=== PATIENT | male | born 1940 | race Caucasian/White ===

== ENCOUNTER 2022-02-16 08:36 | Inpatient (IN) | payer OTHER, SELFPAY ==
[2022-02-16] VITALS (9 sets, daily range): BP systolic 94–145; BP diastolic 67–85; PULSE 75–91; RESP 15–23; TEMP 36.1–36.7; O2SAT 93–100; BMI 34.2; BMI 32.3
--- NOTE | 2022-02-16 08:39 | EKG12_ITS ---
Test Reason : Blood Pressure : / mmHG Vent. Rate : 086 BPM Atrial Rate : 086 BPM P-R Int : 132 ms QRS Dur : 088 ms QT Int : 386 ms P-R-T Axes : 016 022 058 degrees QTc Int : 461 ms Normal sinus rhythm Normal ECG Confirmed by BOBBY JASSO, ANGELIQUE ([id number]), art editor BINH SURESH ([id number]) on 02/18/2022 12:50:37 PM Referred By: Axel Confirmed By:ANGELIQUE ROSALES MD
--- NOTE | 2022-02-16 08:39 | CT_ITS ---
STUDY: CT HEAD STROKE PROTOCOL W/O CONTRAST INJECTION REASON FOR EXAM: Male, 81 years old. Neuro deficit, acute, stroke suspected RADIATION DOSAGE (If Supplied By Facility): CTDIvol = ( 44.99 ) mGy, DLP = ( a 12.98 ) mGycm TECHNIQUE: Transaxial CT imaging of the brain was performed without administration of intravenous contrast material. Individualized dose optimization techniques were used for this CT. COMPARISON: No relevant priors. FINDINGS: Normal soft tissue structures. Normal calvarium. There is mild cerebral atrophy with widening of the extra-axial spaces and ventricular dilatation. There is a 1.1 cm x 0.8 cm hyperdense nodule in the medial aspect of the left occipital lobe with surrounding edema. A similar appearing nodule is seen in the cortical surface of the left posterior parietal lobe measuring 1.5 size by 1.2 cm with surrounding edema. There is also evidence of a 5.6 cm hyperechoic nodule in the posterior medial aspect of the left occipital lobe as well as a 2.1 cm x 1.9 cm hyper dense nodule in the posterior left parietal lobe and medial portion of the right posterior occipital lobe measuring 1 cm. Findings are suggestive of metastatic disease. Normal basal ganglia and thalami. Normal brainstem. Normal cerebellum. There is no intracranial hemorrhage. There are no findings of an acute ischemic infarction. Normal visualized paranasal sinuses. ASPECT score: 10 CT/STROKE Brain/Head without Cont IMPRESSION: Multiple hyperdense nodules scattered in both cerebral hemispheres in cerebellum with surrounding edema suggestive of multiple metastatic deposits. N.B. : The above Results were Read Back by Melecio Hoyos MD to Lori Reyna and understanding confirmed on 02/16/2022 09:47:42 (ET). Electronically Signed: Melecio Hoyos MD at 9:48 EDT ,
[2022-02-16] MEDS: LORazepam 2 MG/ML Syringe 1 MG IV ×2 (08:41→08:48)
--- NOTE | 2022-02-16 08:50 | NURSING ---
0822 STROKE ALERT CALLED PRIOR TO ARRIVAL
[2022-02-16] MEDS: 0.9% Normal Saline 1,000 ML 100 ML IV (08:53)
[2022-02-16] MEDS: levETIRAcetam IV 1,000 MG/100 ML BAG 400 MG IV (08:53)
[2022-02-16 09:04] LABS: Prothrombin Time (Protime)PT. 12.7 SECONDS (11.7-14.9)
[2022-02-16 09:05] LABS: Partial Thromboplast Time 32.2 Seconds (24.1-36.2)
[2022-02-16 09:23] LABS: Absolute Lymphocyte Count 1.63 X10^3/uL (0.83-4.51); Absolute Neutrophil Count 5.3 X10^3/uL (2.0-7.7); Basophil# 0.04 X10^3/uL; Basophil% 0.5 % (0-1); Eosinophils% 1.3 % (0-5); Hematocrit 42.3 % (40-54); Hemoglobin 13.6 g/dL (13.0-16.5); Lymphocyte # 1.63 X10^3/ul (0.83-4.51); Lymphocyte % 21.1 % (19-41); Mean Corp Hgb Conc 32.2 g/dL (32-36); Mean Corpuscular Hgb 31.6 pg (27.0-32.0); Mean Corpuscular Volume 98.1 fL (80-94); Mean Platelet Vol. 10.4 fl (6.2-12.0); Monocyte# 0.59 X10^3/uL; Monocyte% 7.7 % (0-10); NRBC Flagged by Analyzer 0 % (0-5); Neutrophil # 5.32 X10^3/uL (2.7-7.7); Platelet Count 235 K/mm3 (150-450); RBC Distribution Width CV 13.1 % (11.6-14.6); RBC Distribution Width SD 46.5 fl (35.1-43.9); Red Blood Count 4.31 M/mm3 (4.6-6.2); White Blood Count 7.7 K/mm3 (4.4-11.0)
[2022-02-16 09:30] LABS: Anion Gap 4 (5-15); BUN 12 mg/dL (7-18); BUN/Creat Ratio 14.4 RATIO (10-20); Calcium,Total 9.1 mg/dL (8.5-10.1); Chloride 107 mmol/L (98-107); Creatinine, Serum 0.83 mg/dL (0.70-1.30); EST Glomerular Filtration Rate 94 mL/min (>60); Est Glom Filt Rate - Afr Amer 113 mL/min (>60); Estimated Creatinine Clearance 60.85 ml/min; Glucose 104 mg/dL (74-106); Sodium Level 140 mmol/L (136-145); Troponin-I HS 7 pg/mL (3.0-78.0)
--- NOTE | 2022-02-16 09:45 | RAD_ITS ---
STUDY: X-RAY CHEST REASON FOR EXAM: Male, 81 years old. Neuro deficit, acute, stroke suspected TECHNIQUE: Single AP portable view of the chest. COMPARISON: None. FINDINGS: EKG electrodes are seen. Limited inspiratory effort. Increased markings at the lung bases likely more prominent on the right side suggestive of a right basilar atelectasis. Blunting of the right costophrenic angle. Normal size heart. Normal mediastinum and lore. Normal visualized pulmonary arteries. There is atherosclerotic calcification of the aortic arch with tortuosity. There are diffuse degenerative changes of the visualized thoracic spine. There is degenerative osteoarthritis of the bilateral shoulders. Focal sclerosis in the left humeral neck suggestive of either chondroid lesion or a healed bone infarct. There is no demonstrated abnormality of the visualized soft tissue structures of the upper abdomen. RAD/Chest 1 View IMPRESSION: Limited inspiratory effort with mild increased markings at the right lung base suggestive of atelectasis. Electronically Signed: Melecio Hoyos MD at 10:12 EDT ,
--- NOTE | 2022-02-16 09:56 | NURSING ---
CALLED [facility] FOR TRANSFER. TALKED TO CLOSED TO OUTSIDE
--- NOTE | 2022-02-16 09:59 | NURSING ---
CALLED [facility]. TALKED TO DESTINEE. NO BEDS FOR 24 TO 48 HOURS
--- NOTE | 2022-02-16 10:06 | NURSING ---
FAXED FACESHEET TO [facility]
--- NOTE | 2022-02-16 10:20 | NURSING ---
FAXED FACESHEET TO [facility]
--- NOTE | 2022-02-16 10:27 | NURSING ---
CALLED [facility]. TALKED TO YURY. FAXED FACESHEET. SHE WILL HAVE THE NEUROSURGEON CALL BACK
--- NOTE | 2022-02-16 10:53 | ED.RN ---
PT FAMILY MEMBER CONTINUES TO BE AGGRESSIVE AND ABUSIVE TO STAFF IN WAITING ROOM AREA. FAMILY MEMBER STATING THIS IS FUCKING RIDICULOUS. [facility]AN POLICE TO WAITING AREA. PT UNDERSTANDING. EXCEPTION MADE TO ALLOW 1 MORE PERSON I N ROOM. ALL FAMILY AGREEABLE AT THIS POINT.
--- NOTE | 2022-02-16 11:35 | NURSING ---
CALLED [facility] ABOUT AN UPDATE FOR PATIENT TALKED TO SUMAN
--- NOTE | 2022-02-16 11:41 | NURSING ---
DR CASANOVA, , FOR DR RAYO
--- NOTE | 2022-02-16 11:49 | EX.ED.DYSGE1 ---
HPI History of Present Illness Chief Complaint: Seizure Informant: EMS Narrative Narrative: Patient arrives via EMS as a stroke alert. Per EMS report patient was last seen normal last evening before bed. This morning he had decreased level of consciousness and right facial droop. On arrival to the emergency room the patient is obviously having seizure activity. He was placed in a room for further treatment. IV line is established and patient treated with Ativan as well as Keppra. When arrives at bedside she states that she found him like this this morning and he kept saying he does not feel well. She states he has been run down the past couple days. No fever. He has had a moist sounding cough and she does state that he has been having trouble clearing his secretions. Only past medical history is BPH. [facility] Medical History BPH (benign prostatic hyperplasia) Home Medications doxazosin 4 mg tablet 4 mg PO QHS 10/09/13 [History Last Taken 10/21/13 4 MG] Allergy/AdvReac Type Severity Reaction Status Date / Time Penicillins Allergy Intermediate Hives Verified 02/16/22 09:23 pentazocine lactate AdvReac Nausea Verified 02/16/22 09:23 [From Gene] Surgical History Hx of cholecystectomy Hx of total knee replacement Social History Smoking Status: Unknown if ever smoked ROS ROS ED Review of Systems ROS Unobtainable: due to mental condition EXAM Physical Exam Narrative Exam Narrative: Patient with obvious seizure activity including right facial twitch, right arm and right leg twitching. Const Vital Signs: 02/16/22 08:39 02/16/22 08:39 02/16/22 10:34 Temperature 98.1 F Temperature Source Temporal Pulse Rate 86 91 Respiratory Rate 18 23 H Blood Pressure 145/85 H 136/78 H Blood Pressure Mean 105 97 Pulse Ox 98 95 94 Oxygen Delivery Method Room Air Nasal Cannula Nasal Cannula Oxygen Flow Rate (L/min) 2 3 02/16/22 11:06 Temperature Temperature Source Pulse Rate 89 Respiratory Rate 20 H Blood Pressure 117/71 Blood Pressure Mean 86 Pulse Ox 96 Oxygen Delivery Method Room Air Oxygen Flow Rate (L/min) Positive well nourished and well developed General Appearance ED: well developed HEENT Reports moist mucous membranes Chest Wall inspection of chest normal and palpation of chest normal Resp normal respiratory effort and clear to auscultation bilaterally Cardio regular rate and regular rhythm GI non-tender Palpation: soft Extremity normal to inspection Neuro Neuro Narrative: Seizure activity as noted above. Skin no rashes or lesions noted MDM MDM MDM Narrative Medical decision making narrative: Patient initially given 2 doses of Ativan, 1 mg each. This was followed by Diamond suggs. Lab work, EKG, chest x-ray, head CT all ordered. Lab Data Attestation: I reviewed the patient's lab results. Labs: Laboratory Results - last 24 hr 02/16/22 02/16/22 02/16/22 08:43 08:43 09:13 WBC 7.7 RBC 4.31 L Hgb 13.6 Hct 42.3 MCV 98.1 H MCH 31.6 MCHC 32.2 RDW Std Deviation 46.5 H RDW Coeff of Giorgio 13.1 Plt Count 235 MPV 10.4 Immature Gran % (Auto) 0.400 Neut % (Auto) 69.0 Lymph % (Auto) 21.1 [place] % (Auto) 7.7 Eos % (Auto) 1.3 Baso % (Auto) 0.5 Absolute Neuts (auto) 5.3 Absolute Lymphs (auto) 1.63 Nucleated RBC % 0 PT 12.7 INR 1.0 APTT 32.2 Sodium 140 Potassium 4.0 Chloride 107 Carbon Dioxide 29.0 Anion Gap 4 L BUN 12 Creatinine 0.83 Estim Creat Clear Calc 60.85 Est GFR (MDRD) Af Amer 113 Est GFR (MDRD) Non-Af 94 BUN/Creatinine Ratio 14.4 Glucose 104 Calcium 9.1 Troponin I High Sens 7 Radiography Chest X-Ray - ED: 1 View, Read by ED Physician and Chronic Changes Diagnostic Testing: Clinical Impression(s) from Imaging Studies Brain CT 02/16/22 08:39 IMPRESSION: Multiple hyperdense nodules scattered in both cerebral hemispheres in cerebellum with surrounding edema suggestive of multiple metastatic deposits. N.B. : The above Results were Read Back by Melecio Hoyos MD to Lori Reyna and understanding confirmed on 02/16/2022 09:47:42 (ET). Electronically Signed: Melecio Hoyos MD at 9:48 EDT , ADDENDUM: 02/16/22 0955 IMPRESSION: Multiple hyperdense nodules scattered in both cerebral hemispheres in cerebellum with surrounding edema suggestive of multiple metastatic deposits. N.B. : The above Results were Read Back by Melecio Hoyos MD to Lori Reyna and understanding confirmed on 02/16/2022 09:47:42 (ET). Electronically Signed: Melecio Hoyos MD at 9:48 EDT , Chest X-Ray 02/16/22 09:45 IMPRESSION: Limited inspiratory effort with mild increased markings at the right lung base suggestive of atelectasis. Electronically Signed: Melecio Hoyos MD at 10:12 EDT , EKG Initial EKG: Interpretation: Sinus Rhythm (Sinus 86 with no acute ischemia.) Treatment and Re-Evaluation Narrative: Seizure activity has subsided at this time the patient is more alert. He is following commands. Family is now at bedside. Lab work is unremarkable and troponin is normal. Head CT reveals multiple metastatic lesions with some surrounding edema. Chest x-ray per my interpretation reveals chronic changes. Test results discussed with family at bedside. Patient will require transfer to a tertiary care facility for further evaluation. [place] is not excepting any transfers at this time. [facility] has a wait list. [facility] did accept the patient, but is on a wait list for a neuro ICU bed which they believe will likely be available in 4-8 hours. Patient was also discussed with in [place] who accepted the patient to a neuro floor, however stated there was a several day wait for a bed. While awaiting placement, patient was having difficulty urinating and did request a catheter. When nursing staff place catheter he does have bloody urine. Three-way catheter is being placed for irrigation. 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
[2022-02-16] MEDS: dexAMETHasone 10 MG/ML Vial IV (12:15)
--- NOTE | 2022-02-16 12:21 | PCM.CONS.U ---
Assessment & Plan Assessment/Plan (1) Hematuria: PLAN: Patient seen in the emergency room for difficulty with his Ngo I was able to place a 16 British coud? catheter into the bladder without any difficulties he is being transferred to an outside facility for further management of a seizure the catheter can be removed whenever it is necessary. HPI Consult Data Date of Consult: 02/16/22 HPI Narrative Reason for Consultation: Ngo trauma HPI Narrative: JUDD DA SILVA, is a 81 M who presents to the emergency room with a seizure known to have brain metastasis of tumors the nursing staff attempted to place a Ngo catheter had return of blood in the urine they tried a larger catheter and could not get it in so I was called to see the patient I removed a three-way catheter was only partially into the meatus I then put a 16 British catheter into the bladder with clear return of yellow urine with no problems and 10 cc in the balloon. [facility] Medical History BPH (benign prostatic hyperplasia) Home Medications doxazosin 4 mg tablet 4 mg PO QHS 10/09/13 [History Last Taken 10/21/13 4 MG] Allergy/AdvReac Type Severity Reaction Status Date / Time Penicillins Allergy Intermediate Hives Verified 02/16/22 09:23 pentazocine lactate AdvReac Nausea Verified 02/16/22 09:23 [From Gene] Surgical History Hx of cholecystectomy Hx of total knee replacement Social History Smoking Status: Unknown if ever smoked Lab / Micro Data Result Diagrams: 02/16/22 09:13 02/16/22 08:43 Labs: Laboratory Results - last 24 hr 02/16/22 08:43: PT 12.7, INR 1.0, APTT 32.2 02/16/22 08:43: Sodium 140, Potassium 4.0, Chloride 107, Carbon Dioxide 29.0, Anion Gap 4 L, BUN 12, Creatinine 0.83, Estim Creat Clear Calc 60.85, Est GFR (MDRD) Af Amer 113, Est GFR (MDRD) Non-Af 94, BUN/Creatinine Ratio 14.4, Glucose 104, Calcium 9.1, Troponin I High Sens 7 02/16/22 09:13: WBC 7.7, RBC 4.31 L, Hgb 13.6, Hct 42.3, MCV 98.1 H, MCH 31.6, MCHC 32.2, RDW Std Deviation 46.5 H, RDW Coeff of Giorgio 13.1, Plt Count 235, MPV 10.4, Immature Gran % (Auto) 0.400, Neut % (Auto) 69.0, Lymph % (Auto) 21.1, [place] % (Auto) 7.7, Eos % (Auto) 1.3, Baso % (Auto) 0.5, Absolute Neuts (auto) 5.3, Absolute Lymphs (auto) 1.63, Nucleated RBC % 0 Micro: Microbiology 02/16/22 09:55 Nasal Secretion SARS-CoV-2 Antigen (Rapid) - Final Radiology Impression Brain CT 02/16/22 08:39 IMPRESSION: Multiple hyperdense nodules scattered in both cerebral hemispheres in cerebellum with surrounding edema suggestive of multiple metastatic deposits. N.B. : The above Results were Read Back by Melecio Hoyos MD to Lori Reyna and understanding confirmed on 02/16/2022 09:47:42 (ET). Electronically Signed: Meelcio Hoyos MD at 9:48 EDT , ADDENDUM: 02/16/22 0955 IMPRESSION: Multiple hyperdense nodules scattered in both cerebral hemispheres in cerebellum with surrounding edema suggestive of multiple metastatic deposits. N.B. : The above Results were Read Back by Melecio Hoyos MD to Lori Reyna and understanding confirmed on 02/16/2022 09:47:42 (ET). Electronically Signed: Melecio Hoyos MD at 9:48 EDT , Chest X-Ray 02/16/22 09:45 IMPRESSION: Limited inspiratory effort with mild increased markings at the right lung base suggestive of atelectasis. Electronically Signed: Melecio Hoyos MD at 10:12 EDT ,
--- NOTE | 2022-02-16 12:23 | PCM.HP.STD ---
Documented by User: JAMISON Mayer 02/16/22 12:39 HPI - General General Date of Admission: 02/16/22 Date of Service: 02/16/22 Chief Complaint: seizure HPI Narrative JUDD DA SILVA, is a 81 M who presents due to decreased level of consciousness and right facial droop and was initially thought to be a stroke however in ER patient began to have seizures. Patient was initially brought in and received a CT scan in ER which showed multiple hyperdense nodules scattered in both cerebral hemispheres and cerebellum with surrounding edema suggestive of multiple metastatic deposits. Patient has no known history of cancer. Patient has a history of BPH and is on doxazosin. Patient received dexamethasone and Keppra in ER as well as Ativan. Patient not currently seizing, lethargic but awake. Patient was having difficulty urinating in the ER and a catheter was attempted however patient was noted to have bloody discharge/urine when attempting Ngo and the Ngo was difficult to place so Dr. Yeager was called for consultation and catheter placement. Dr. Leong at bedside during evaluation, coud? catheter placed, draining blood-tinged urine. [facility] Medical History BPH (benign prostatic hyperplasia) Home Medications doxazosin 4 mg tablet 4 mg PO QHS 10/09/13 [History Last Taken 10/21/13 4 MG] Allergy/AdvReac Type Severity Reaction Status Date / Time Penicillins Allergy Intermediate Hives Verified 02/16/22 09:23 pentazocine lactate AdvReac Nausea Verified 02/16/22 09:23 [From Gene] Surgical History Hx of cholecystectomy Hx of total knee replacement Social History Smoking Status: Former smoker ROS Review of Systems ROS Unobtainable: due to mental status Constitutional Constitutional: Reports lethargy Genitourinary Genitourinary: Reports dysuria Neurologic Neurologic: Reports seizures Vital Signs Vital Signs Vital Signs: 02/16/22 08:39 02/16/22 08:39 02/16/22 10:34 Temperature 98.1 F Temperature Source Temporal Pulse Rate 86 91 Respiratory Rate 18 23 H Blood Pressure 145/85 H 136/78 H Blood Pressure Mean 105 97 Pulse Ox 98 95 94 Oxygen Delivery Method Room Air Nasal Cannula Nasal Cannula Oxygen Flow Rate (L/min) 2 3 02/16/22 11:06 Temperature Temperature Source Pulse Rate 89 Respiratory Rate 20 H Blood Pressure 117/71 Blood Pressure Mean 86 Pulse Ox 96 Oxygen Delivery Method Room Air Oxygen Flow Rate (L/min) Weight Weight: 212 lb 1.355 oz Body Mass Index (BMI) 34.2 Physical Exam Const Orientation / Consciousness: disoriented and lethargic HEENT normocephalic, head/scalp atraumatic and moist oral mucous membranes Eyes conjunctivae normal and no scleral icterus Neck supple General: trachea midline Resp normal respiratory effort, normal air movement and clear to auscultation bilaterally Cardio regular rate, regular rhythm, S1 normal heart sound, S2 normal heart sound and peripheral pulses 2+ throughout GI normal to inspection, nondistended, normoactive bowel sounds, soft to palpation and non-tender Extremity normal capillary refill and no clubbing, cyanosis or edema Skin Lesions: no lesions Rashes: no rashes Neuro Neuro Narrative: postictal Sensorium / Orientation: lethargic Speech: speech abnormal Details: Positive for garbled and slurred Psych Speech: incoherent Thought Process: disorganized Results Lab / Micro Data Result Diagrams: 02/16/22 09:13 02/16/22 08:43 Labs: Laboratory Results - last 24 hr 02/16/22 08:43: PT 12.7, INR 1.0, APTT 32.2 02/16/22 08:43: Sodium 140, Potassium 4.0, Chloride 107, Carbon Dioxide 29.0, Anion Gap 4 L, BUN 12, Creatinine 0.83, Estim Creat Clear Calc 60.85, Est GFR (MDRD) Af Amer 113, Est GFR (MDRD) Non-Af 94, BUN/Creatinine Ratio 14.4, Glucose 104, Calcium 9.1, Troponin I High Sens 7 02/16/22 09:13: WBC 7.7, RBC 4.31 L, Hgb 13.6, Hct 42.3, MCV 98.1 H, MCH 31.6, MCHC 32.2, RDW Std Deviation 46.5 H, RDW Coeff of Giorgio 13.1, Plt Count 235, MPV 10.4, Immature Gran % (Auto) 0.400, Neut % (Auto) 69.0, Lymph % (Auto) 21.1, [place] % (Auto) 7.7, Eos % (Auto) 1.3, Baso % (Auto) 0.5, Absolute Neuts (auto) 5.3, Absolute Lymphs (auto) 1.63, Nucleated RBC % 0 Micro: Microbiology 02/16/22 09:55 Nasal Secretion SARS-CoV-2 Antigen (Rapid) - Final Radiology Impression Brain CT 02/16/22 08:39 IMPRESSION: Multiple hyperdense nodules scattered in both cerebral hemispheres in cerebellum with surrounding edema suggestive of multiple metastatic deposits. N.B. : The above Results were Read Back by Melecio Hoyos MD to Lori Reyna and understanding confirmed on 02/16/2022 09:47:42 (ET). Electronically Signed: Melecio Hoyos MD at 9:48 EDT , ADDENDUM: 02/16/22 0955 IMPRESSION: Multiple hyperdense nodules scattered in both cerebral hemispheres in cerebellum with surrounding edema suggestive of multiple metastatic deposits. N.B. : The above Results were Read Back by Melecio Hoyos MD to Lori Reyna and understanding confirmed on 02/16/2022 09:47:42 (ET). Electronically Signed: Melecio Hoyos MD at 9:48 EDT , Chest X-Ray 02/16/22 09:45 IMPRESSION: Limited inspiratory effort with mild increased markings at the right lung base suggestive of atelectasis. 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 Seizures, likely secondary to brain mets -Admit to ICU -Decadron 4 mg IV every 6 hours -Patient loaded with Keppra in ER, will continue -Patient accepted to [facility] however they will not have a bed for approximately 48 hours so patient will be transferred to ICU for close monitoring of seizure activity -As needed Ativan 2. Hematuria -Unknown cause, Ngo catheter placed by Dr. Young -Draining blood-tinged urine -Repeat CBC in a.m. -Maintain Ngo catheter DVT prophylaxis-SCDs, no pharmacological prophylaxis due to hematuria This patient was seen by JAMISON Mayer under the supervision of Dr. Clifton. 30 minutes spent in clinical coordination of patient's plan of care. Documented by User: Dr. Compa Clifton, 02/16/22 18:43 HPI - General General Date of Admission: 02/16/22 [facility] Medical History BPH (benign prostatic hyperplasia) Home Medications doxazosin 4 mg tablet 4 mg PO QHS 10/09/13 [History Last Taken 10/21/13 4 MG] Allergy/AdvReac Type Severity Reaction Status Date / Time Penicillins Allergy Intermediate Hives Verified 02/16/22 09:23 pentazocine lactate AdvReac Nausea Verified 02/16/22 09:23 [From Gene] Surgical History Hx of cholecystectomy Hx of total knee replacement Social History Smoking Status: Former smoker Results Lab / Micro Data Result Diagrams: 02/16/22 09:13 02/16/22 08:43 Assessment & Plan Assessment/Plan (1) Seizure: (2) 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 but the time of this dictation, a bed was not available. On examination he appeared somewhat somnolent, he was able to answer simple questions appropriately. Vital signs as documented. Skin warm and dry and without overt rashes. Neck without JVD, neck was supple, trachea midline, thyroid was normal. Lungs clear bilaterally, normal air movement was noted. Heart exam notable for regular rhythm, normal sounds and absence of murmurs, rubs or gallops. Abdomen unremarkable and without evidence of organomegaly, masses, or abdominal aortic enlargement. Bowel sounds are present, abdomen is not distended. Extremities nonedematous, no cyanosis was noted, no clubbing was noted. Neuro: Cranial nerves II through XII are grossly intact, no focal motor deficits were noted, sensation to light touch and pinprick intact, motor exam 5/5 throughout. Psych: Patient is alert and oriented x3, he does not appear anxious or depressed, he does not appear agitated. 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 #2 metastatic disease to the brain-primary unknown at this time, no diagnostic work-up will be done at this facility as the patient will be transferred to [facility]. #3 urinary retention-a Ngo was inserted in the emergency room by urology without difficulties. I have reviewed Sharmaine Villarreal's history and physical including her medical assessment and plan of care and with the above additions endorse it. Total clinical time spent by myself addressing the patient's medical issues, reviewing the data, and collaborating with patient's care team: 40 minutes Visit Charges Inpatient E&M: 25722 Init Hosp L3
--- NOTE | 2022-02-16 12:38 | ED.RN ---
when RN placing 18 temp jensen, blood noted. informed MD. kee to irrigate. when irrigating, no urine return after fluid in bladder. removed catheter and attempted to place [address] catheter. unable to get to bladder, and then unable to remove from penis. Dr. Reyna also attempt and unable. Urology c/s. Dr. Young arrived and able to remove catheter, new 18 coude placed, drained 1L urine. no blood clots noted.
--- NOTE | 2022-02-16 12:55 | NURSING ---
[id number] TERELETSKY SEIZURE, BRAIN METS
[2022-02-16] MEDS: 0.9% Normal Saline 1,000 ML 75 ML IV (13:10)
--- NOTE | 2022-02-16 18:53 | DS.PCM_ITS ---
Providers Date of Admission: 02/16/22 Date of Discharge: 02/16/22 Primary Care Physician: Dr. 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 Hematuria -Unknown cause #3 brain metastases from unknown primary cancer #4 urinary retention-secondary to BPH Medications at Discharge Home Medications doxazosin 4 mg tablet 4 mg PO QHS 10/09/13 Hospital Course Operations None Procedures None Summary of Care Provided Minutes Spent on Discharge: 31 Hospital Course: WithThis 81-year-old white male was seen in the emergency room at [facility] after being brought in by squad due to mental status changes noted at home by his . Patient was less alert at home and seemed confused. By the time the patient was brought to the emergency room, he had a grand mal seizure, he underwent a CT of the head which showed multiple metastatic lesions in the brain along with edema. Patient was given IV Keppra and IV Decadron, phone calls were made to tertiary hospitals to transfer the patient, unfortunate ly bed was not available at [facility] but they agreed to take the patient when a bed was available. Patient was briefly admitted to the ICU, he was given IV Decadron, and kept on IV Keppra, on 02/16/2022, patient was seen and examined: On examination he appeared appropriate, he answered simple questions appropriately. Vital signs as documented. Skin warm and dry and without overt ra shes. Neck without JVD, neck was supple, trachea midline, thyroid was normal. Lungs clear bilaterally, normal air movement was noted. Heart exam notable for regular rhythm, normal sounds and absence of murmurs, rubs or gallops. Abdomen unremarkable and without evidence of organomegaly, masses, or abdominal aortic enlargement. Bowel sounds are present, abdomen is not distended. Extremities nonedematous, no cyanosis was noted, no clubbing was noted. Neuro: Cranial nerves II through XII are grossly intact, no focal motor deficits were noted, sensation to light touch and pinprick intact, motor exam 5/5 throughout. Psych: Patient is alert and oriented x3, he does not appear anxious or depressed, he does not appear agitated. Patient was transferred [facility] for further care on 02/16/2022 in stable condition. Weight / BMI Weight Weight: 90.8 kg Body Mass Index (BMI) 32.3 ABG / Lab / Microbiology Data Result Diagrams: 02/16/22 09:13 02/16/22 08:43 Laboratory: Laboratory Results - last 24 hr 02/16/22 08:43: PT 12.7, INR 1.0, APTT 32.2 02/16/22 08:43: Sodium 140, Potassium 4.0, Chloride 107, Carbon Dioxide 29.0, Anion Gap 4 L, BUN 12, Creatinine 0.83, Estim Creat Clear Calc 60.85, Est GFR (MDRD) Af Amer 113, Est GFR (MDRD) Non-Af 94, BUN/Creatinine Ratio 14.4, Glucose 104, Calcium 9.1, Troponin I High Sens 7 02/16/22 09:13: WBC 7.7, RBC 4.31 L, Hgb 13.6, Hct 42.3, MCV 98.1 H, MCH 31.6, MCHC 32.2, RDW Std Deviation 46.5 H, RDW Coeff of Giorgio 13.1, Plt Count 235, MPV 10.4, Immature Gran % (Auto) 0.400, Neut % (Auto) 69.0, Lymph % (Auto) 21.1, [place] % (Auto) 7.7, Eos % (Auto) 1.3, Baso % (Auto) 0.5, Absolute Neuts (auto) 5.3, Absolute Lymphs (auto) 1.63, Nucleated RBC % 0 Microbiology: Microbiology 02/16/22 09:55 Nasal Secretion SARS-CoV-2 Antigen (Rapid) - Final Radiography Diagnostic Testing: Radiology Impression Brain CT 02/16/22 08:39 IMPRESSION: Multiple hyperdense nodules scattered in both cerebral hemispheres in cerebellum with surrounding edema suggestive of multiple metastatic deposits. N.B. : The above Results were Read Back by Melecio Hoyos MD to Lori Reyna and understanding confirmed on 02/16/2022 09:47:42 (ET). Electronically Signed: Melecio Hoyos MD at 9:48 EDT , ADDENDUM: 02/16/22 0955 IMPRESSION: Multiple hyperdense nodules scattered in both cerebral hemispheres in cerebellum with surrounding edema suggestive of multiple metastatic deposits. N.B. : The above Results were Read Back by Melecio Hoyos MD to Lori Reyna and understanding confirmed on 02/16/2022 09:47:42 (ET). Electronically Signed: Melecio Hoyos MD at 9:48 EDT , Chest X-Ray 02/16/22 09:45 IMPRESSION: Limited inspiratory effort with mild increased markings at the right lung base suggestive of atelectasis. Electronically Signed: Melecio Hoyos MD at 10:12 EDT , Meaningful Use Info Meaningful Use Diagnoses (Choose all that apply): None applicable Discharge Plan Admission Admit Date/Time: 02/16/22 12:17 Attending Provider: Compa Clifton Primary Care Provider: Mitchell Meléndez Consulting Providers: Cesario Young Discharge Orders/Prescriptions Prescriptions: No Action doxazosin 4 MG tablet 4 mg PO QHS Label Comments: heart rate Referrals / Follow Up: Mitchell Meléndez, [Primary Care Provider] - Disposition Disposition (needs filled in before D/C Order can be placed): Acute Care Hospital Charges/Coding Visit Charges OBSV E&M: 29377 Observ/hosp same date L3
== END 2022-02-16 14:40 | disposition short-term general hospital (02) | DRG 100 ==
LOC: ED 12:23 → ICU 12:40
PROVIDERS: Admitting Provider Internal Medicine; Emergency Provider Emergency Medicine; PCP Family Medicine; Visit Provider Internal Medicine
DX: G40.901 Epilepsy, unspecified, not intractable, with status epilepticus (principal); G93.6 Cerebral edema; C79.31 Secondary malignant neoplasm of brain; C80.1 Malignant (primary) neoplasm, unspecified; R33.9 Retention of urine, unspecified; Z87.891 Personal history of nicotine dependence; R31.9 Hematuria, unspecified; N40.0 Benign prostatic hyperplasia without lower urinary tract symptoms
CPT/HCPCS: 70450; 71045; 80048; 84484; 85025; 85610; 85730; 87811; 93005; 99285; J7030; A4216